=== PATIENT | female | born 1975 | race Caucasian/White ===

== ENCOUNTER 2025-05-15 14:21 | Emergency (ER) | payer MEDICAID ==
[~2025-05-15] VITALS: Ht 165.1 cm; Wt 72.7 kg
[2025-05-15 14:22] VITALS: BP 147/70; PULSE 77; RESP 13; TEMP 98.1
--- NOTE | 2025-05-15 14:34 | Physician Documentation ---
History of Present Illness General Chief Complaint: Abscess Stated Complaint: WOUND ON ABD Time Seen by MD: 14:34 OK to notify your PCP?: No Primary Medical Doctor: Damien Gao Source: patient, RN notes reviewed Mode of Arrival: POV Exam Limitations: no limitations History of Present Illness Initial Comments 50 year old female presents complaining of an area of redness, swelling, and pain to the left lower abdominal wall that began approximately 1.5 weeks ago. Pain worsens with palpation to the area. Symptoms have been worsening over this time. She denies any fever. She denies history of similar symptoms. Medication Reconciliation Allergies: Coded Allergies: No Known Allergies (Unverified , 05/15/25) Scheduled Cephalexin*Monohydrate* (Keflex*), 2 CAP PO BID Sulfamethoxazole/Trimethoprim (Septra Ds Tab), 1 TAB PO BID Past Medical History Past Medical History: No Pertinent History Past Surgical History: noncontributory Alcohol Use: None Lives In: Home Review of Systems All Other Systems at this time: Reviewed and Negative ROS As stated above in the HPI, otherwise all systems are reviewed and negative. Physical Exam Physical Exam Vital Signs: RN Vital Signs have been reviewed: Yes, Temperature: 98.1, Source: Oral, Heart Rate: 77, Respiratory Rate: 13, BP: 147/70, Weight: 72.730 Pulse Oximetry Reflects: adequate oxygenation Physical Exam VITALS: Reviewed and as above. GENERAL: Alert, no apparent distress. HEENT: Normocephalic, atraumatic, PERRL, EOMI, dry mucosa, no erythema RESPIRATORY: Lungs clear, normal breath sounds, no respiratory distress. CHEST: No accessory muscle use, no retractions CV: Regular rate, rhythm, no edema, no murmur, No: JVD GI: Left lower abdominal wall with 4 cm x 3 cm area of fluctuance with 12 cm x 5 cm area of erythema, tender to palpation. Otherwise: Soft, non-tender, bowels sounds present, no rebound, guarding, or rigidity MUSCULOSKELETAL No deformities, no edema SKIN: See GI. Otherwise: Warm and dry, no rash NEURO: Somnolent but easily arousable. Oriented x4, No motor or sensory deficit PSYCH: Normal mood and affect, no agitation Procedures I & D Procedure : Site: Lower abdominal Anesthesia: Lidocaine w/ Epi Volume Anesthetic (mls): 10 Blade Size: 11 Prep/Supplies: betadine prep, dressing applied Incision: pus drained, blood drained, other (necrotic tissue) Tolerated Procedure Well?: yes, no complications Progress Results/Orders Results/Orders Completed Orders - VILLA KANG MD Lidocaine 1% W/Epi 1:100,000 (Xylocaine (05/15/25 14:40) Cephalexin Capsule (Keflex Capsule) (05/15/25 15:15) Sulfamethox/Trimetho. Ds Tab (Septra Ds (05/15/25 15:15) Medications Received in ER Medications (Trade) Dose Ordered Sig/Katiuska Route PRN Reason Start Time Stop Time Status Last Admin Dose Admin (Keflex capsule) 500 mg ONCE ONCE PO 05/15/25 15:15 05/15/25 15:16 DC 05/15/25 15:30 500 MG (Septra DS tab) 1 tab ONCE ONCE PO 05/15/25 15:15 05/15/25 15:16 DC 05/15/25 15:30 1 TAB Vital Signs 05/15/25 05/15/25 14:22 14:37 Temp 98.1 Pulse 77 Resp 13 B/P (MAP) 147/70 Medical Decision Making Additional information obtaine: old records (no prior visits) Findings Patient is a 50-year-old female with a abscess to her left lower abdomen the patient had incision and drainage of the abscess she had some necrotic tissue in the central portion of the abscess was incised and a purulent discharge was expressed the patient will be placed on antibiotics she was given a dose of antibiotics. Previous hospitalizations were reviewed the patient's pulse oximetry was interpreted as normal and adequate Differential Diagnosis Abscess cellulitis Departure Time of Disposition: 15:11 Disposition: 01 HOME / SELF CARE / HOMELESS Impression: Primary Impression: Abscess Additional Impression: Cellulitis Qualified Codes: L03.311 - Cellulitis of abdominal wall Condition: Stable Discharge Instructions: Skin Abscess, [id number] Additional Instructions: Take full course of both antibiotics as prescribed. Follow up with your regular doctor. Return to the ER for worsening redness, worsening pain, fever, vomiting, or any other concerns. Prescriptions Cephalexin*Monohydrate* (Keflex*) 500 Mg Capsule 2 CAP PO BID, #28 CAP Prov: VILLA KANG MD 05/15/25 Sulfamethoxazole/Trimethoprim (Septra Ds Tab) 800 Mg/160 Mg Tablet 1 TAB PO BID, #14 TAB Prov: VILLA KANG MD 05/15/25 Education Educated: Patient Educated regarding: diagnosis, treatment, need for follow up Signature Scribe Signature: Scribed for Villa Kang MD by Shakeel Spence . 05/15/25 15:09 Attestation: The note accurately reflects work and decisions made by me.Villa Kang MD 05/15/25 17:28 VILLA KANG MD May 15, 2025 14:34 SHAKEEL ARMENTA May 15, 2025 15:12
[2025-05-15] MEDS ORDERED: SULF1TAB45 PO (14:40)
[2025-05-15] MEDS ORDERED: CEPH-585 PO (14:40)
[2025-05-15] MEDS: LIDOcaine 1% W/epiNEPHrine 1:100,000 20ml vial IJ ONE (15:09)
[2025-05-15] MEDS: sulfamethoxazole/trimethoprim DS (800/160mg) tablet PO ONE (15:30)
== END 2025-05-15 15:32 | disposition home or self-care (01) ==
LOC: ER 14:22
DX: L02.211 Cutaneous abscess of abdominal wall (principal); L03.311 Cellulitis of abdominal wall
CPT/HCPCS: 10060; 99283; A6266; A6449